=== PATIENT | male | born 1955 | race Caucasian/White ===

== ENCOUNTER 2016-10-31 11:32 | Day surgery (SDC) | payer MEDICAID ==
[~2016-10-31] VITALS: Ht 170.2 cm; Wt 71.2 kg
[2016-10-31] MEDS ORDERED: HYDR28.39 RC (12:14)
[2016-10-31] MEDS ORDERED: CAPT25TA3 PO (12:14)
[2016-10-31] MEDS ORDERED: DEXL60CA2 PO (12:14)
[2016-10-31] MEDS ORDERED: TAMS0.4C2 PO (12:14)
[2016-10-31 12:17] VITALS: Ht 170.2 cm; Wt 71.2 kg
[2016-10-31 12:47] VITALS: BP 123/73; PULSE 67; RESP 18
[2016-10-31] MEDS ORDERED: PROPOFOL 60 ML ONE (13:15)
[2016-10-31] MEDS ORDERED: LIDOCAINE 2% (SDV) 5 ML INJ ONE (13:15)
--- NOTE | 2016-10-31 14:38 | OPPN ---
Date/Time of Note Date/Time of Note DATE: 10/31/16 TIME: 14:36 Operative Report Preoperative Diagnosis Abdominal pain Change in bowel habit Rectal bleeding Postoperative Diagnosis Gastroesophageal reflux disease Gastritis with erosions Large rectal tumor Large flat polyp on ileocecal valve Operation/Procedure Performed Esophagogastroduodenoscopy and biopsy Colonoscopy biopsy and polypectomy Anesthesia Type: MAC Estimated blood loss: minimal Transfusion Required: no Specimens Gastric mucosal biopsy for H. pylori test Biopsy of the rectal tumor Polyp on ileocecal valve Grafts/Implants: none Complications: no SIMON MURRY MD Oct 31, 2016 14:38
[2016-10-31 14:54] VITALS: BP 139/75; RESP 20
--- NOTE | 2016-11-01 06:33 | GILP ---
DATE OF PROCEDURE: 10/31/2016 PROCEDURE PERFORMED: 1. Esophagogastroduodenoscopy and biopsy. 2. Colonoscopy, biopsy, and polypectomy. SURGEON: Jamie Marquez MD PREOPERATIVE DIAGNOSES: 1. Abdominal pain. 2. Chronic heartburn. 3. Rectal bleeding. POSTOPERATIVE DIAGNOSES: 1. Gastroesophageal reflux disease. 2. Gastritis with erosions. 3. Gastric mucosal biopsies were taken for Helicobacter pylori test. 4. Colonoscopy all the way to the cecum. 5. Large rectal tumor, biopsies taken for histopathology. 6. Large sessile polyp on the ileocecal valve, and major portion of the polyp was removed in pieces using the snare and electrocautery. INDICATION: Mr. Corrine Palmer is a 61-year-old male patient, who had upper abdominal pain not responding to therapy. He also had rectal bleeding and change in bowel habits. The patient was scheduled for endoscopy and colonoscopy for further evaluation. The procedures and possible complications were well explained to the patient. The patient understood and consented to the procedures. DESCRIPTION OF PROCEDURE: Under the influence of anesthesia, the gastroscope was carefully introduced into the esophagus. Under direct vision, it was advanced to the stomach into the pylorus into the duodenal bulb, and descending duodenum. Findings: Esophagus - the patient had gastroesophageal reflux disease. Stomach - he had gastritis with erosions. Gastric mucosal biopsies were taken for Helicobacter pylori test. Duodenum was normal. The colonoscope was carefully introduced in the rectum. Under direct vision, it was advanced all the way to the cecum. Findings: The patient had a large rectal tumor and multiple biopsies were taken for histopathology. The patient also had a large flat polyp on the ileocecal valve and major portion of the polyp was removed in pieces using the snare and electrocautery. The patient tolerated the procedures very well. There was no complication from the procedure. At the end of the procedure, he was awake with stable vital signs. He was discharged home in the care of his family. IMPRESSION: Please see postop diagnoses. PLAN: 1. Await histopathology reports. 2. The patient will need surgical evaluation for the rectal tumor. Dictated By: MD NOHEMY Bose/emory/fernando /Document#: [id number]
== END 2016-10-31 17:17 | disposition home or self-care (01) ==
LOC: GIL 11:32
PROVIDERS: ATTEND Internal Medicine Gastroenterology
DX: R12 Heartburn (principal); B96.81 Helicobacter pylori [H. pylori] as the cause of diseases classified elsewhere; K21.9 Gastro-esophageal reflux disease without esophagitis; K29.60 Other gastritis without bleeding; K63.5 Polyp of colon; D49.0 Neoplasm of unspecified behavior of digestive system; I10 Essential (primary) hypertension; E78.5 Hyperlipidemia, unspecified
CPT/HCPCS: 43239; 45380; 87081; 88305; Z7610

== ENCOUNTER 2016-12-14 08:35 | Inpatient (IN) | payer MEDICAID ==
[~2016-12-14] VITALS: Ht 170.2 cm; Wt 71.9 kg
[2016-12-14] VITALS (16 sets, daily range): BP systolic 111–150; BP diastolic 61–94; PULSE 16–84; RESP 14–16; Ht 170.2 cm; Wt 71.9 kg
[~2016-12-14 08:35] MED LIST: AMPICILLIN/SULB 3 GM/NS (PMX) 100 ML IVPB SCH; ATROPINE 1 MG/10 ML SYRINGE IV PRN; CAPT25TA3 PO; DEXL60CA2 PO; DIPHENHYDRAMINE 50 MG INJ IV PRN; EPHEDrine SULFATE 50 MG/5 ML SYG IV PRN; FENTAnyl 50 MCG/ML VIAL IV PRN; HYDR28.39 RC; HYDROmorphONE (0.2 MG/ML) 10ML SYG IV PRN; LABETALOL HCL 20MG INJ IV PRN; MEPERIDINE 25 MG INJ IV PRN; MIDAZOLAM 1 MG/ML 2 ML INJ IV PRN; ONDANSETRON 4 MG INJ IV PRN; OXYCODONE/ACETAMINOPHEN (5/325) TAB PO PRN; SOD CHLORIDE 0.9% 1,000 ML IV SCH; TAMS0.4C2 PO; hydrALAzine 20 MG INJ IV PRN; morphine (1 MG/ML) 10ML SYRINGE IV PRN
[2016-12-14] MEDS ORDERED: ACET-141 PO (09:11)
--- NOTE | 2016-12-14 09:39 | RADRPT ---
PROCEDURE: XR Chest. CLINICAL INDICATION: Preoperative TECHNIQUE: Single frontal view of the chest was obtained COMPARISON: Preoperative FINDINGS: No pleural effusion or pneumothorax. No consolidation. Unremarkable cardiac silhouette. Conspicuous central pulmonary arteries. No acute osseous abnormality. IMPRESSION: No acute cardiopulmonary disease. RPTAT: EE Physician Vita Date Time Electronically viewed and signed by Charlie Estrada Physician on 12/14/2016 09:39 /
[2016-12-14 10:05] LABS: BASOPHILS % 0.2 % (0.0-2.0); EOSINOPHILS % 0.7 % (0.0-7.0); HEMATOCRIT 39.3 % (42.0-52.0); LYMPHOCYTES # 2.4 10^3/ul (0.8-2.9); LYMPHOCYTES % 39.9 % (15.0-51.0); MEAN CORPUSCULAR HGB CONC 33.1 g/dl (32.0-37.0); MEAN CORPUSCULAR VOLUME 84.7 fl (82.0-101.0); MEAN PLATELET VOLUME 9.2 fl (7.4-10.4); MONOCYTE # 0.7 10^3/ul (0.3-0.9); MONOCYTES % 11.2 % (0.0-11.0); NEUTROPHIL # 2.9 10^3/ul (1.6-7.5); NEUTROPHILS % 47.8 % (39.0-77.0); PLATELET COUNT 218 10^3/UL (140-415); RED BLOOD COUNT 4.64 10^6/ul (4.70-6.10); RED CELL DISTRIBUTION WIDTH 14.1 % (11.5-14.5); WHITE BLOOD COUNT 6.1 10^3/ul (4.8-10.8)
[2016-12-14 10:20] LABS: INR 1.03; PARTIAL THROMBOPLASTIN TIME 31.6 Sec (25.0-35.0); PROTIME 13.5 Sec (12.2-14.2); PT RATIO 1.1
[2016-12-14 10:23] LABS: ALBUMIN 4.1 g/dl (3.3-4.9); ALBUMIN/GLOBULIN RATIO 1.1; BILIRUBIN,INDIRECT 0.8 mg/dl (0-1.1); BILIRUBIN,TOTAL 0.8 mg/dl (0.2-1.3); TOTAL PROTEIN 7.8 g/dl (6.1-8.1)
[2016-12-14 10:25] LABS: CALCIUM 9.3 mg/dl (8.4-10.2); CREATININE 0.78 mg/dl (0.61-1.24); POTASSIUM 3.7 mmol/L (3.5-5.1)
[2016-12-14] MEDS ORDERED: morphine SULFATE/PF (10 MG/10 ML) INJ ONE (11:27)
[2016-12-14] MEDS ORDERED: SUGAMMADEX SODIUM 200 MG/2 ML VIAL IV ONE (12:29)
--- NOTE | 2016-12-14 13:11 | SIPON ---
Date/Time of Note Date/Time of Note DATE: 12/14/16 TIME: 13:05 Operative Report Preoperative Diagnosis No sigmoid cancer and cecal cancer Postoperative Diagnosis Same Operation/Procedure Performed Anal exam under anesthesia and rigid sigmoidoscopy Surgeon see signature line assistant site manager Dr. Yunior Trujillo Anesthesia: general Estimated blood loss: 0 - 10 ml's Transfusion Required none Specimen None Grafts/Implants none Complications none PEARL SWIFT MD Dec 14, 2016 13:11
--- NOTE | 2016-12-14 13:26 | OPR ---
DATE OF OPERATION: 12/14/2016 PREOPERATIVE DIAGNOSIS: Rectosigmoid tumor and a cecal tumor. 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 OPERATIVE PROCEDURE: Anal exam under anesthesia and rigid sigmoidoscopy. ANESTHESIA: General. ANESTHESIOLOGIST: Jono Toure MD SURGEON: Bernardino Dunham MD POACHER OPERATOR: Arnoldo Trujillo MD INDICATIONS FOR PROCEDURE: The patient is a 61-year-old male who presented with some rectal bleeding. He underwent a colonoscopy performed by attending manager ct, Dr. Marquez. By colonoscopy and pathology report, the patient was found to have a tumor at the junction of the sigmoid colon and rectum and a second tumor in the cecum. Based on this, the patient and his family were counseled as to the need for resection. Options including total abdominal colectomy versus segmental resections were presented to the patient and the family. The patient wished undergo segmental resection with a right hemicolectomy and a low anterior resection of the rectosigmoid tumor. The patient consented and was scheduled for surgery. DESCRIPTION OF PROCEDURE: The patient was brought to the operating theater, placed under general anesthesia. He was then placed in the lithotomy position. Dr. Dunham performed a rectal exam prior to prepping and draping the patient, and determined that the tumor was not located at the rectosigmoid junction, but was in fact very low, approximately at the level of the internal sphincter. The rigid sigmoidoscope was then placed and the tumor was found to extend several cm superiorly, essentially occupying the entire distal third to distal half of the rectum. Based on this, Dr. Dunham made the decision the patient was not a candidate for low anterior resection. The patient would be best treated by neoadjuvant chemotherapy and radiation. Therefore, the procedure was concluded. Total blood loss was approximately 10 mL secondary to bleeding of the tumor upon visual examination. There were no complications and the patient was then transported in stable condition to the recovery room. Dictated By: Bernardino Dunham MD /emory/pernell /Document#: [id number]
--- NOTE | 2016-12-14 15:50 | RADRPT ---
PROCEDURE: XR Chest. CLINICAL INDICATION: Left IV in neck infiltrated TECHNIQUE: Single frontal view of the chest was obtained COMPARISON: None FINDINGS: No pleural effusion or pneumothorax. No consolidation. Unremarkable cardiac silhouette. Conspicuous aortic arch suggestive of chronic systemic hypertension . No acute osseous abnormality. IMPRESSION: No acute cardiopulmonary disease. RPTAT: EE Charlie Estrada Physician Date Time Electronically viewed and signed by Charlie Estrada Physician on 12/14/2016 15:50 /
--- NOTE | 2016-12-15 16:33 | RADRPT ---
Vent Rate: 76 bpm RR Interval: 0 msec OK Interval: 152 msec QRS Duration: 82 msec QT Interval: 392 msec QTC Interval: 441 msec P-R-T Floyd: 69 - 63 - 43 degrees Normal sinus rhythm Normal ECG Electronically Signed By: Devon Banks [id number]
== END 2016-12-14 17:45 | disposition home or self-care (01) | DRG 376 ==
LOC: REC 08:43 → EDSTATUS 10:30
PROVIDERS: ADMIT Surgery Surgical Oncology; ATTEND Surgery Surgical Oncology
PROC: 0DJD8ZZ Inspection of Lower Intestinal Tract, Via Natural or Artificial Opening Endoscopic (ICD-10-PCS; principal; 2016-12-14 10:30)
DX: C20 Malignant neoplasm of rectum (principal); I10 Essential (primary) hypertension; E78.5 Hyperlipidemia, unspecified; N40.0 Benign prostatic hyperplasia without lower urinary tract symptoms
CPT/HCPCS: 71010; 80053; 85025; 85610; 85730; 86850; 86900; 86901; 86920; 93005; J0295; J2274

== ENCOUNTER 2017-10-01 09:25 | Inpatient (IN) | END 2017-10-14 19:15 | disposition home or self-care (01) | DRG 331 ==